=== PATIENT | female | born 1970 | race Caucasian/White ===

== ENCOUNTER 2017-11-14 07:40 | Observation (INO) | payer OTHER ==
[~2017-11-14] VITALS: Ht 162.6 cm; Wt 86.2 kg
[~2017-11-14 07:40] MED LIST: ALBUTEROL2.5 MG/3 M INH/SOL; ALPRAZOLAM1 M2 PO; GUAIFENESIN ER600 MG PO; MELATONIN1 M2 PO; METHYLPREDNISOL PO; MONTELUKAST SOD10 M1 PO; PREDNISONE10 M2 PO; PROAIR HFA8.5 GM INH; SYMBICORT 16010.2 GM INH
--- NOTE | 2017-11-14 08:06 | ED DYSPNEA/ASTHMA COMPLAINT ---
History of Present Illness General Chief Complaint: Upper Respiratory Sx/Fever Stated Complaint: COUGH AND CONGESTION Source: patient Exam Limitations: no limitations Vital Signs & Intake/Output Vital Signs & Intake/Output Vital Signs Date Time Temp Pulse Resp B/P B/P Pulse O2 O2 Flow FiO2 Mean Ox Delivery Rate 11/14 1209 98 11/14 0950 98.1 86 20 120/72 98 Room Air 11/14 0922 98 11/14 0828 95 Room Air 11/14 0822 98 11/14 0743 97.5 96 20 122/87 98 Room Air Allergies Coded Allergies: No Known Allergies (11/25/16) Reconcile Medications Albuterol Sulfate 2.5 MG/3 ML (0.083 %) VIAL.NEB 1 Vial INH/ADAN Q4-6H RESP. ( Reported) Albuterol Sulfate (Proair Hfa) 90 MCG HFA.AER.AD 2 PUF INH Q4-6 PRN PRN SHORTNESS OF BREATH (Reported) Alprazolam 1 MG TABLET 1 TAB PO BIDP PRN ANXIETY (Reported) Fluticasone/Vilanterol (Breo Ellipta 200-25 Mcg INH) 200 MCG-25 MCG/DOSE BLST.W.DEV 1 PUFF PO DAILY BREATHING PROBLEMS (Reported) Melatonin 1 MG TABLET 2 TAB PO QHS SLEEP (Reported) Montelukast Sodium 10 MG TABLET 1 TAB PO QHS RESP. (Reported) Prednisone 10 MG TABLET 1 TAB PO DAILY asthma Take 4 tablets 10/9 and 10/10 Take 3 tabs 10/11 and 10/12 Take 2 tabs 10/13 and 10/14 Take 1 tab 10/15 and 10/16. Sertraline HCl 50 MG TABLET 1 TAB PO QPM MENTAL HEALTH (Reported) Triage Note: PT TO ED C/O ASTHMA EXACERBATION. STATES SHE HAS BEEN ON STEROIDS SINCE . STATES WHEN THIS HAPPENS SHE GETS ADMITTED FOR "IV STEROIDS AND AROUND THE CLOCK DR JAVIER CHRISTIANSON KNOWS ME". Triage Nurses Notes Reviewed? yes Onset: Gradual Duration: week(s):, changing over time, continues in ED, getting worse, waxing and waning Severity: moderate, severe HPI: Patient presents for evaluation of a cough chest congestion and worsening asthma symptoms over the past month. Patient states that she's been taking nebulizers and steroids and antibiotics without improvement. She states she "can't breathe ". She has had a loose sounding cough along with her chest congestion. She used a nebulizer in the middle of the night and she used her Spiriva this morning. She does tend to suffer sinus issues from time to time and feels a little sinus congestion currently but otherwise denies cold symptoms. She is a nonsmoker having quit about 1 year ago. She feels she needs to be hospitalized because "every time she gets this way" her sales systems engineer "puts her in the hospital". Past History Travel History Traveled to [place] past 21 day No Medical History Any Pertinent Medical History? see below for history Neurological: NONE EENT: NONE Cardiovascular: NONE Respiratory: asthma, bronchitis Gastrointestinal: NONE Hepatic: NONE Renal: NONE Musculoskeletal: NONE Psychiatric: anxiety Endocrine: NONE Blood Disorders: NONE Cancer(s): NONE SENIOR ELECTRONICS ENGINEER/Reproductive: NONE History of MRSA: No History of VRE: No History of CDIFF: No Surgical History Surgical History: tubal ligation Psychosocial History Who do you live with Spouse What is your primary language Ethiopian Tobacco Use: Quit >30 days ago ETOH Use: denies use Illicit Drug Use: denies illicit drug use Family History Hx Contributory? No Review of Systems Review of Systems Constitutional: Reports: no symptoms. EENTM: Reports: no symptoms. Respiratory: Reports: see HPI. Cardiovascular: Reports: no symptoms. GI: Reports: no symptoms. Genitourinary: Reports: no symptoms. Musculoskeletal: Reports: no symptoms. Skin: Reports: no symptoms. Neurological/Psychological: Reports: no symptoms. Hematologic/Endocrine: Reports: no symptoms. Immunologic/Allergic: Reports: no symptoms. All Other Systems: Reviewed and Negative Physical Exam Physical Exam Respiratory: SEE BELOW Comments: Gen.: Well-nourished, well-developed, no acute respiratory distress. Conversant in full sentences. Head: Normocephalic, atraumatic. Eyes: Normal inspection bilaterally Ears: Normal inspection bilaterally Nose: Normal inspection Throat/mouth : Moist mucosa Neck: Supple, full range of motion, no goiter Heart: Regular rate and rhythm, no murmurs rubs or gallops Lungs: Diffuse wheezing and rhonchi with somewhat diminished air entry Chest: Nontender Back: Normal range of motion Abdomen: Soft, nontender, nondistended, normal bowel sounds Extremities: Normal range of motion grossly, equal radial pulses, no cyanosis clubbing or edema Neurologic: Cranial nerves grossly intact, speech is clear Skin: warm and dry Psychiatric: Calm, cooperative, no apparent delusions or hallucinations Core Measures ACS in differential dx? No CVA/TIA Diagnosis No Sepsis Present: No Sepsis Focused Exam Completed? No Progress Differential Diagnosis: asthma, bronchitis, CHF, COPD, pneumonia, pneumothorax Plan of Care: Orders Procedure Date/time Status Heart Healthy Diet 11/[address] in observation 11/14 121 Active Misc Message 11/14 121 Active ED Holding Orders 11/14 121 Active Vital Signs 11/14 121 Active Code Status 11/14 1210 Active COMPREHENSIVE METABOLIC PANEL 11/14 1002 Complete CBC WITHOUT DIFFERENTIAL 11/14 1002 Complete ARTERIAL BLOOD GAS (GEN) 11/14 09 Complete Laboratory Tests 11/14/17 1054: Anion Gap 9, Estimated GFR > 60, BUN/Creatinine Ratio 21.7, Glucose 125 H, Calcium 8.8, Total Bilirubin 0.3, AST 20, ALT 34, Alkaline Phosphatase 51, Total Protein 6.8, Albumin 4.0, Globulin 2.8, Albumin/Globulin Ratio 1.4, CBC w Diff NO MAN DIFF REQ, RBC 3.84 L, MCV 91.3, MCH 31.2 H, MCHC 34.2, RDW 14.5, MPV 7.2 L, Gran % 70.0, Lymphocytes % 24.8, Monocytes % 3.9, Eosinophils % 1.1, Basophils % 0.2, Absolute Granulocytes 5.8, Absolute Lymphocytes 2.1, Absolute Monocytes 0.3, Absolute Eosinophils 0.1, Absolute Basophils 0 11/14/17 0915: pH 7.52 H, pCO2 27 L, pO2 111 H, HCO3 21, ABG O2 Sat (Measured) 99.0, Carboxyhemoglobin 0.5 L, O2 Concentration % RA, O2 Delivery Method RA, Phlebotomy Draw Site RIGHT RADIAL CXR Impression: PATIENT: OMAIRA GUILLORY PRESENT AGE : 47 PATIENT ACCOUNT NO: [id number] : 71 LOCATION: [facility] ORDERING PHYSICIAN: Thang Flores MD SERVICE DATE: 11/14/17 EXAM TYPE: RAD - XRY-CHEST XRAY, TWO VIEWS EXAMINATION: CHEST 2 VIEWS CLINICAL INFORMATION: Congestive cough. COMPARISON: PA and lateral chest x-ray of 11/25/2016. TECHNIQUE: PA and lateral radiographs of the chest were obtained. FINDINGS: The cardiomediastinal contours are normal in appearance. There is no evidence of a pneumothorax, vascular congestive changes, focal consolidation, infiltrates, or pleural effusion. The bony thorax is unremarkable. There has been no significant interval change. IMPRESSION: No pneumonia or other active cardiopulmonary process identified. DICTATED BY: Marck Cooper MD DATE/TIME DICTATED:11/14/17829 MECHANIC MARINE ENGINE:[email or web address] DATE/TIME TRANSCRIBED:11/14/17829 CONFIDENTIAL, DO NOT COPY WITHOUT APPROPRIATE AUTHORIZATION. <Electronically signed in Other Vendor System> SIGNED BY: Marck Cooper MD 11/14/17836 Initial ED EKG: none Comments: 11/14/2017 9:00:45 AM PATIENT'S CASE DISCUSSED WITH DR. SANDERSON. SEEN IN WITH ZPACK AND PREDNISONE. NOT SEEN SINCE. 11/14/2017 9:30:40 AM ABG reveals respiratory alkalosis consistent with hyperventilation. I have updated Omaira on this test results. Of note she states that she has been seen in Dr. Sanderson's office as recently as May, typically seeing his nurse practitioner. 11/14/2017 11:19:31 AM Omaira has improved with a second nebulizer treatment. She is resting comfortably and has declined a third. Awaiting blood work. 11/14/2017 11:53:11 AM I noticed Omaira coughing again and asked if she felt an albuterol treatment would be beneficial, she agreed. Departure Departure Disposition: STILL A PATIENT Condition: Stable Clinical Impression Primary Impression: Acute asthma exacerbation Qualifiers: Asthma severity: moderate Asthma persistence: persistent Qualified Code: J45.41 - Moderate persistent asthma with (acute) exacerbation Referrals: Boni Suero MD (PCP/Family) Departure Forms: Customer Survey General Discharge Information Observation Note Spoke With: Manoj Vivreos MD Patient In: Non-ED OBS Care Area Rationale for Observation: My rational for observation is as follows patient has persistent clinical bronchospasm and shortness of breath despite 2 nebulizer treatments and IV Solu- Medrol. She has been taking prednisone, nebulizers and inhalers at home. She has therefore failed outpatient management of her asthma and requires hospitalization. While in the hospital a patient should be treated with inhaled bronchodilators, IV steroids and clinical reevaluation. Pulmonary consultation should be considered given the persistence of the patient's symptoms. Her medication should be reviewed and are medical management optimized. Critical Care Note Critical Care Note Critical Care Time: 30-74 min
--- NOTE | 2017-11-14 08:37 | RADIOLOGY REPORT ---
EXAMINATION: CHEST 2 VIEWS CLINICAL INFORMATION: Congestive cough. COMPARISON: PA and lateral chest x-ray of 11/25/2016. TECHNIQUE: PA and lateral radiographs of the chest were obtained. FINDINGS: The cardiomediastinal contours are normal in appearance. There is no evidence of a pneumothorax, vascular congestive changes, focal consolidation, infiltrates, or pleural effusion. The bony thorax is unremarkable. There has been no significant interval change. IMPRESSION: No pneumonia or other active cardiopulmonary process identified.
[2017-11-14] MEDS ORDERED: SERTRALINE HCL50 MG PO (08:44)
[2017-11-14] MEDS ORDERED: BREO ELLIPTA 21 EACH PO (08:45)
[2017-11-14] MEDS ORDERED: PROAIR HFA8.5 GM INH (08:45)
[2017-11-14 11:02] LABS: ABSOLUTE BASOPHIL COUNT 0 /CUMM (0.0-0.2); ABSOLUTE EOSINOPHIL COUNT 0.1 /CUMM (0.0-0.7); ABSOLUTE GRANULOCYTE CT 5.8 /CUMM (1.4-6.5); ABSOLUTE LYMPH COUNT 2.1 /CUMM (1.2-3.4); ABSOLUTE MONOCYTE COUNT 0.3 /CUMM (0.10-0.60); BASOPHIL % 0.2 % (0.0-2.0); EOSINOPHIL % 1.1 % (0-5); MEAN CORPUSCULAR HGB 31.2 PG (27.0-31.0); MEAN CORPUSCULAR HGB CONC 34.2 G/DL (33.0-37.0); MEAN CORPUSCULAR VOLUME 91.3 FL (81.0-99.0); MEAN PLATELET VOLUME 7.2 FL (7.4-10.4); PLATELET COUNT 292 /CUMM (130-400); RBC DISTRIBUTION WIDTH 14.5 % (11.5-14.5); RED BLOOD CELL CT 3.84 /CUMM (4.20-5.40); WHITE BLOOD CELL COUNT 8.3 /CUMM (4.8-10.8)
--- NOTE | 2017-11-14 12:25 | History & Physical ---
Patrick REAVES,[facility] 11/14/17 1224: General Information and HPI MD Statement: I have seen and personally examined JUAN GUILLORY and documented this H&P. The patient is a 47 year old F who presented with a patient stated chief complaint of cough/congestion. Source of Information: patient Exam Limitations: no limitations History of Present Illness: 47-year-old lady with a past medical history significant for asthma, former smoker who quit 1 year ago anxiety presents to [facility] ED with complaints of one month history of progressively worsening cough and chest congestion, but no chest pain. Today, she denies any fever, chills, recent URI, sick contacts,chest pain, palpitation. Pt states that normally, an acute bronchitis episode is what triggers her asthma attack. She states that she just finished a 5 day course of Z-herrera on 11/08. She reports lately she has been increasingly using her nebulizer in the middle of the night, and is currently taking oral steroids given by her stone spreader operator which she believes has not been effective. Last hospitalization for asthma exacerbation was in November last year, denies any history of intubation. Denies any new exposure to chemical irritants, but has pets at home (cat). 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 Patient is seen by Dr. Fletcher who is her stone spreader operator. She regularly use of her Peak flow, but she remembers the last measurement was around 260 about 2 weeks ago. Allergies/Medications Allergies: Coded Allergies: No Known Allergies (11/25/16) Home Med list Albuterol Sulfate 2.5 MG/3 ML (0.083 %) VIAL.NEB 1 Vial INH/ADAN Q4-6H RESP. ( Reported) Albuterol Sulfate (Proair Hfa) 90 MCG HFA.AER.AD 2 PUF INH Q4-6 PRN PRN SHORTNESS OF BREATH (Reported) Alprazolam 1 MG TABLET 1 TAB PO BIDP PRN ANXIETY (Reported) Fluticasone/Vilanterol (Breo Ellipta 200-25 Mcg INH) 200 MCG-25 MCG/DOSE BLST.W.DEV 1 PUFF PO DAILY BREATHING PROBLEMS (Reported) Melatonin 1 MG TABLET 2 TAB PO QHS SLEEP (Reported) Montelukast Sodium 10 MG TABLET 1 TAB PO QHS RESP. (Reported) Prednisone 10 MG TABLET 1 TAB PO DAILY asthma Take 4 tablets 11/29 and 11/30 Take 3 tabs 12/01 and 12/02 Take 2 tabs 12/03 and 12/04 Take 1 tab 12/05 and 12/06. Sertraline HCl 50 MG TABLET 1 TAB PO QPM MENTAL HEALTH (Reported) Past History Travel History Traveled to [place] past 21 day No Medical History Neurological: NONE EENT: NONE Cardiovascular: NONE Respiratory: asthma, bronchitis Gastrointestinal: NONE Hepatic: NONE Renal: NONE Musculoskeletal: NONE Psychiatric: anxiety Endocrine: NONE Blood Disorders: NONE Cancer(s): NONE STONE REPAIRER/Reproductive: NONE History of MRSA: No History of VRE: No History of CDIFF: No Surgical History Surgical History: tubal ligation Past Family/Social History Psychosocial History ETOH Use: denies use Illicit Drug Use: denies illicit drug use Review of Systems Review of Systems Constitutional: Reports: see HPI. EENTM: Reports: no symptoms. Cardiovascular: Reports: no symptoms. Respiratory: Reports: cough, wheezing. GI: Reports: no symptoms. Genitourinary: Reports: no symptoms. Musculoskeletal: Reports: no symptoms. Skin: Reports: no symptoms. Neurological/Psychological: Reports: no symptoms. Hematologic/Endocrine: Reports: no symptoms. Immunologic/Allergic: Reports: no symptoms. All Other Systems: Reviewed and Negative Exam & Diagnostic Data Last 24 Hrs of Vital Signs/I&O Vital Signs Date Time Temp Pulse Resp B/P B/P Pulse O2 O2 Flow FiO2 Mean Ox Delivery Rate 11/14 1209 98 11/14 0950 98.1 86 20 120/72 98 Room Air 11/14 0922 98 11/14 0828 95 Room Air 11/14 0822 98 11/14 0743 97.5 96 20 122/87 98 Room Air Intake & Output 11/14 1600 11/14 0800 11/14 0000 Intake Total 0 Output Total Balance 0 Intake, Oral 0 Patient 86.183 kg Weight Weight Estimated Measurement Method Physical Exam General Appearance Alert, Oriented X3, Cooperative, No Acute Distress, able to speak in full sentences, no accessory muscles recruited Skin No Significant Lesion Skin Temp/Moisture Exam: Warm/Dry Sepsis Skin Exam (color): Normal for Ethnicity HEENT Atraumatic, Mucous Membr. moist/pink Neck Supple, No JVD Lymphatic Cervical nl Cardiovascular Regular Rate, Normal S1, Normal S2 Lungs prolonged exp wheezes b/l more prominent in the upper hook Abdomen Normal Bowel Sounds, Soft, No Tenderness Neurological Normal Gait, Normal Speech, Strength at 5/5 X4 Ext, Normal Tone, Sensation Intact Extremities No Clubbing, No Cyanosis, No Edema Last 24 Hrs of Labs/Gerard: Laboratory Tests 11/14/17 1054: Anion Gap 9, Estimated GFR > 60, BUN/Creatinine Ratio 21.7, Glucose 125 H, Calcium 8.8, Total Bilirubin 0.3, AST 20, ALT 34, Alkaline Phosphatase 51, Total Protein 6.8, Albumin 4.0, Globulin 2.8, Albumin/Globulin Ratio 1.4, CBC w Diff NO MAN DIFF REQ, RBC 3.84 L, MCV 91.3, MCH 31.2 H, MCHC 34.2, RDW 14.5, MPV 7.2 L, Gran % 70.0, Lymphocytes % 24.8, Monocytes % 3.9, Eosinophils % 1.1, Basophils % 0.2, Absolute Granulocytes 5.8, Absolute Lymphocytes 2.1, Absolute Monocytes 0.3, Absolute Eosinophils 0.1, Absolute Basophils 0 11/14/17 0915: pH 7.52 H, pCO2 27 L, pO2 111 H, HCO3 21, ABG O2 Sat (Measured) 99.0, Carboxyhemoglobin 0.5 L, O2 Concentration % RA, O2 Delivery Method RA, Phlebotomy Draw Site RIGHT RADIAL Microbiology 11/14 1240 URINE ROUT: Legionella Antigen - ORD 11/14 124 URINE ROUT: Streptococcus pneumoniae Antigen (M - ORD 11/14 1241 LOWER RESP: Respiratory Culture - ORD 11/14 124 LOWER RESP: Gram Stain - ORD Diagnostic Data EKG Results SERVICE DATE: 11/14/17 EXAM TYPE: RAD - XRY-CHEST XRAY, TWO VIEWS EXAMINATION: CHEST 2 VIEWS CLINICAL INFORMATION: Congestive cough. COMPARISON: PA and lateral chest x-ray of 11/25/2016. TECHNIQUE: PA and lateral radiographs of the chest were obtained. FINDINGS: The cardiomediastinal contours are normal in appearance. There is no evidence of a pneumothorax, vascular congestive changes, focal consolidation, infiltrates, or pleural effusion. The bony thorax is unremarkable. There has been no significant interval change. IMPRESSION: No pneumonia or other active cardiopulmonary process identified. DICTATED BY: Marck Cooper MD DATE/TIME DICTATED:11/14/17829 Assessment/Plan Assessment: 47-year-old lady with past medical history significant for asthma, former smoker (>30pack year) quit 1 year ago, anxiety, presents with upper respiratory symptoms and physical exam positive for b/l wheezes which is consistent with an asthma exacerbation that has been refractory to outpatient oral steroids. Afebrile on presentation with no leukocytosis and chest x-ray unremarkable for any acute pathology. Impression Asthma exacerbation. Possible triggered by allergens vs bronchitis. History of anxiety. Plan Admit to general medicine O2 supplementation to keep sats above 90% Scheduled TRC nebs while awake s/p solumedrol 120mg, continue 40 mg q8h starting tomorrow Continue Singulair Peak flow measurement now and after every neb session f/u sputum cultures,legionalla and strept Watch off Abx, since she finsished a zpak course five days ago. Will notify her stone spreader operator (Dr Borrero) Consider Pneumovax before discharge, if not already given Ativan as needed for anxiety. Contine setrlaine 50 mg daily CODE STATUS; full DVT prophylaxis; enoxaparin As Ranked By This Provider Problem List: 1. Acute asthma exacerbation Qualifiers Asthma severity: moderate Asthma persistence: persistent Qualified Code: J45.41 - Moderate persistent asthma with (acute) exacerbation Core Measures/Misc (11/07) Acute Coronary Syndrome ACS Diagnosis: No Congestive Heart Failure Congestive Heart Failure Diagnosis No Cerebrovascular Accident CVA/TIA Diagnosis: No VTE (View Protocol) VTE Risk Factors Acute Medical Illness No Mechanical VTE Prophylaxis d/t N/A MechProphylax Ordered No VTE Pharm Prophylaxis d/t NA PharmProphylax ordered Sepsis (View protocol) Sepsis Present: No If YES complete Sepsis Event Note If YES complete Sepsis Event Note NancyFrederick 11/14/17 1445: Core Measures/Misc (11/07) Sepsis (View protocol) If YES complete Sepsis Event Note If YES complete Sepsis Event Note Attending MD Review Statement Attending Statement Attending MD Statement: examined this patient, discuss w/resident/PA/IMMIGRATION SPECIALIST, agreed w/resident/PA/IMMIGRATION SPECIALIST, discussed with family, reviewed EMR data (avail), discussed with nursing, discussed with case mgmt, reviewed images, amended to note Attending Assessment/Plan: Agree with above. Admit for asthma exacerbation. Notify pulmonary.
[2017-11-14 16:17] VITALS: BP 136/84
[2017-11-14 21:30] VITALS: BP 128/78
[2017-11-14 22:47] VITALS: BP 136/80
[2017-11-15 06:42] VITALS: BP 136/78
--- NOTE | 2017-11-15 06:56 | PN- Housestaff ---
Tere Shearer 11/15/17 0656: Subjective Follow-up For: asthma exacerbation Complaints: no complaints Tele-Events Since Last Visit: Seen and examined sitting comfortably in bed this morning. She reports that she is feeling much better than before. Reports her breathing feeling much better as well. No other complaints no acute events overnight. Review of Systems Constitutional: Reports: see HPI. Objective Last 24 Hrs of Vital Signs/I&O Vital Signs Date Time Temp Pulse Resp B/P B/P Pulse O2 O2 Flow FiO2 Mean Ox Delivery Rate 11/15 1619 98 Room Air 11/15 1600 98.6 74 20 120/64 88 11/15 0814 95 Room Air 11/15 0800 Room Air 11/15 0642 98.0 100 24 136/78 98 11/15 0000 Room Air 11/14 2247 98.2 110 22 136/80 100 Nasal 2.0L Cannula 11/14 2130 98.7 100 20 128/78 96 Intake & Output 11/15 1600 11/15 0800 11/15 0000 Intake Total 800 120 600 Output Total Balance 800 120 600 Intake, Oral 800 120 600 Physical Exam General Appearance: Alert, Oriented X3, Cooperative, No Acute Distress Skin: No Rashes, No Breakdown, No Significant Lesion Skin Temp/Moisture Exam: Cool/Dry Sepsis Skin Exam (color): Normal for Ethnicity HEENT: Atraumatic, Mucous Membr. moist/pink Neck: Supple, No JVD, No thryomegaly, No LAD Cardiovascular: Regular Rate, Normal S1, Normal S2, No Murmurs Lungs: Normal Air Movement, mild wheeze b/l Abdomen: Normal Bowel Sounds, Soft, No Tenderness, No Hepatospenomegaly, No Masses Neurological: Normal Speech, Strength at 5/5 X4 Ext, Normal Tone, Sensation Intact, Cranial Nerves 3-12 NL Extremities: No Clubbing, No Cyanosis, No Edema, Normal Pulses, No Tenderness/ Swelling Current Medications: Current Medications Sig/Nguyễn Start time Last Medication Dose Route Stop Time Status Admin Albuterol Sulfate 3 ML EVERY 4 HRS/AWAKE 11/15 1999 AC 11/15 INH 1611 Alprazolam 0.5 MG TID PRN 11/15 0815 AC 11/15 PO 11/22 0859 1316 Alprazolam 1 MG BID PRN 11/14 1345 DC 11/15 PO 11/21 1344 0532 Budesonide/ 2 PUF BID 11/14 2100 AC 11/15 Formoterol Fumarate INH 0805 Cyclobenzaprine HCl 10 MG 0600,1800 11/15 1800 AC PO Cyclobenzaprine HCl 10 MG BID 11/14 1700 DC 11/15 PO 0805 Enoxaparin Sodium 40 MG DAILY 11/15 0900 AC SC Guaifenesin 600 MG Q12 11/14 2100 AC 11/15 PO 08 Ipratropium Grace 2.5 ML EVERY 4 HRS/AWAKE 11/14 2000 AC 11/15 INH 1611 Lorazepam 0 .STK-MED ONE 11/14 2300 DC .ROUTE Lorazepam 0.5 MG ONCE ONE 11/14 2300 DC 11/14 IV 11/14 Melatonin 3 MG AT BEDTIME 11/14 2099 DC 11/14 PO 2018 Melatonin 5 MG AT BEDTIME 11/14 2100 AC PO Methylprednisolone 40 MG Q8 11/15 0600 AC 11/15 IV 1357 Montelukast Sodium 10 MG AT BEDTIME 11/14 2100 AC 11/14 PO 2016 Sertraline HCl 50 MG 1800 11/15 1800 AC PO Sertraline HCl 50 MG QPM 11/14 2100 DC 11/14 PO 1747 Tramadol HCl 0 .STK-MED ONE 11/15 0047 DC PO Tramadol HCl 50 MG ONCE ONE 11/15 0045 DC 11/15 PO 11/15 0046 0044 Last 24 Hrs of Lab/Gerard Results Last 24 Hrs of Labs/Mics: Laboratory Tests 11/15/17 0628: Anion Gap 11, CBC w Diff NO MAN DIFF REQ, RBC 3.70 L, MCV 92.8, MCH 31.5 H, MCHC 34.0, RDW 15.4 H, MPV 7.6, Gran % 80.6 H, Lymphocytes % 12.9 L, Monocytes % 6.3, Eosinophils % 0, Basophils % 0.2, Absolute Granulocytes 14.3 H , Absolute Lymphocytes 2.3, Absolute Monocytes 1.1 H, Absolute Eosinophils 0, Absolute Basophils 0 Assessment/Plan Assessment: 47-year-old female with a past medical history significant for asthma, former smoker (quit 1 year ago anxiety) presented to [facility] ED with complaints of progressively worsening cough and chest congestion 1 month. She finished a 5 day course of Z-Walt on November 08. Denies any fever, chills, recent URI, sick contacts,chest pain, palpitations. She reports using her nebulizer more frequently lately and is currently taking p.o. prednisone by her continuous pickling line pickler. She measures her peak flow regularly, and she remembers was 260 from 2 weeks ago Her last hospitalization for asthma exacerbation was in November 2016, she denies history of intubation due to asthma. Chest x-ray:No pneumonia or other active cardiopulmonary process identified. Problems: 1.asthma exacerbation 2.anxiety Plan: Problem List: 1. Acute asthma exacerbation Pain Ratin Pain Location: none Pain Goal: Remain pain free Pain Plan: pain pathway Tomorrow's Labs & Rationales: not required NancyFrederick 11/15/17 1126: Attending MD Review Statement Attending Statement Attending MD Statement: examined this patient, discuss w/resident/PA/SALES DEVELOPMENT SPECIALIST, agreed w/resident/PA/SALES DEVELOPMENT SPECIALIST, discussed with family, reviewed EMR data (avail), discussed with nursing, discussed with case mgmt, reviewed images, amended to note Attending Assessment/Plan: Patient here in observation for asthma exacerbation and improvement with iv steroids. She has diffuse b/l wheezing appears to be improved. She had neck pain which is better now with muscle relaxants. Pulmonary appreciated. Continue current care. Anticipate discharge in next 24-48 hrs.
[2017-11-15 08:21] LABS: ABSOLUTE BASOPHIL COUNT 0 /CUMM (0.0-0.2); ABSOLUTE EOSINOPHIL COUNT 0 /CUMM (0.0-0.7); ABSOLUTE GRANULOCYTE CT 14.3 /CUMM (1.4-6.5); BASOPHIL % 0.2 % (0.0-2.0); EOSINOPHIL % 0 % (0-5)
[2017-11-15 08:42] LABS: ABSOLUTE LYMPH COUNT 2.3 /CUMM (1.2-3.4); ABSOLUTE MONOCYTE COUNT 1.1 /CUMM (0.10-0.60); GRANULOCYTE % 80.6 % (42.2-75.2); HEMATOCRIT 34.3 % (37-47); MEAN CORPUSCULAR HGB 31.5 PG (27.0-31.0); MEAN CORPUSCULAR VOLUME 92.8 FL (81.0-99.0); MEAN PLATELET VOLUME 7.6 FL (7.4-10.4); PLATELET COUNT 305 /CUMM (130-400); RBC DISTRIBUTION WIDTH 15.4 % (11.5-14.5)
[2017-11-15 08:47] LABS: WHITE BLOOD CELL COUNT 17.7 /CUMM (4.8-10.8)
--- NOTE | 2017-11-15 08:51 | Cons- Pulmonary ---
General Information and HPI Consulting Request Date of Consult: 11/15/17 Requested By: Dr. Cruz Reason for Consult: Asthma management Source of Information: patient, old records Exam Limitations: no limitations History of Present Illness: The patient is a 47-year-old female with a past medical history significant for long-term tobacco use (quit in 2017), and obstructive lung disease. The patient presented to the ED with complaints of progressively worsening cough, chest congestion and shortness of breath. There is no report of chest pain, fever or chills. The patient was treated with a Z-Walt, oral steroids and nebulizer treatments without relief. Further evaluation revealed the patient to be in acute bronchospasm with evidence of an asthma exacerbation. Chest x-ray showed no pneumonia or other active cardiopulmonary process. The patient is currently on IV Solu-Medrol 40 mg every 8 hours, Singulair, nebs/TRC, and supplemental oxygen as needed. She is also receiving guaifenesin for cough. There has been no source of infection identified. She is feeling much improved since admission. Allergies/Medications Allergies: Coded Allergies: No Known Allergies (11/25/16) Home Med List: Albuterol Sulfate 2.5 MG/3 ML (0.083 %) VIAL.NEB 1 Vial INH/ADAN Q4-6H RESP. ( Reported) Albuterol Sulfate (Proair Hfa) 90 MCG HFA.AER.AD 2 PUF INH Q4-6 PRN PRN SHORTNESS OF BREATH (Reported) Alprazolam 1 MG TABLET 1 TAB PO BIDP PRN ANXIETY (Reported) Fluticasone/Vilanterol (Breo Ellipta 200-25 Mcg INH) 200 MCG-25 MCG/DOSE BLST.W.DEV 1 PUFF PO DAILY BREATHING PROBLEMS (Reported) Melatonin 1 MG TABLET 2 TAB PO QHS SLEEP (Reported) Montelukast Sodium 10 MG TABLET 1 TAB PO QHS RESP. (Reported) Prednisone 10 MG TABLET 1 TAB PO DAILY asthma Take 4 tablets 11/29 and 11/30 Take 3 tabs 12/01 and 12/02 Take 2 tabs 13 and 12/04 Take 1 tab 15 and 16. 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 Surgical History Surgical History: tubal ligation Psychosocial History Smoking Status: Former Smoker ETOH Use: denies use Illicit Drug Use: denies illicit drug use Exam & Diagnostic Data Last 24 Hrs of Vital Signs/I&O Vital Signs Date Time Temp Pulse Resp B/P B/P Pulse O2 O2 Flow FiO2 Mean Ox Delivery Rate 11/15 0814 95 Room Air 11/15 0642 98.0 100 24 136/78 98 11/15 0000 Room Air 11/14 2247 98.2 110 22 136/80 100 Nasal 2.0L Cannula 11/14 2130 98.7 100 20 128/78 96 11/14 1651 Room Air 11/14 1617 98.9 92 20 136/84 95 11/14 1436 98 11/14 1248 98.0 82 19 128/70 99 Room Air 11/14 1209 98 11/14 0950 98.1 86 20 120/72 98 Room Air 11/14 0922 98 Intake & Output 11/15 1600 11/15 0800 11/15 0000 Intake Total 120 600 Output Total Balance 120 600 Intake, Oral 120 600 Physical Exam General Appearance: no apparent distress, alert, awake, comfortable Head: atraumatic Eyes: Bilateral: PERRL. Neck: supple Respiratory: wheezing Cardiovascular: regular rate/rhythm Gastrointestinal: normal bowel sounds, soft, non-tender Extremities: no edema Last 48 Hrs of Labs/Gerard: Laboratory Tests 11/15/17 0628: Sodium Pending, Potassium Pending, Chloride Pending, Carbon Dioxide Pending, Anion Gap Pending, CBC w Diff Pending, WBC Pending, RBC Pending, Hgb Pending, Hct Pending, MCV Pending, MCH Pending, MCHC Pending, RDW Pending, Plt Count Pending, MPV Pending 11/14/17 1054: Anion Gap 9, Estimated GFR > 60, BUN/Creatinine Ratio 21.7, Glucose 125 H, Calcium 8.8, Phosphorus 3.4, Total Bilirubin 0.3, AST 20, ALT 34, Alkaline Phosphatase 51, Total Protein 6.8, Albumin 4.0, Globulin 2.8, Albumin/Globulin Ratio 1.4, CBC w Diff NO MAN DIFF REQ, RBC 3.84 L, MCV 91.3, MCH 31.2 H, MCHC 34.2, RDW 14.5, MPV 7.2 L, Gran % 70.0, Lymphocytes % 24.8, Monocytes % 3.9, Eosinophils % 1.1, Basophils % 0.2, Absolute Granulocytes 5.8, Absolute Lymphocytes 2.1, Absolute Monocytes 0.3, Absolute Eosinophils 0.1, Absolute Basophils 0 11/14/1715: pH 7.52 H, pCO2 27 L, pO2 111 H, HCO3 21, ABG O2 Sat (Measured) 99.0, Carboxyhemoglobin 0.5 L, O2 Concentration % RA, O2 Delivery Method RA, Phlebotomy Draw Site RIGHT RADIAL Diagnostic Data EKG Results No acute cardiopulmonary process. Assessment/Plan Impression/Plan: 1. Asthma exacerbation - with significant improvement with current therapy. 2. Previous history of smoking. Recommendations: * Continue IV Solu-Medrol 40 mg every 8 hours. * Continue Singulair 10 mg daily. * Guaifenesin to continue. * Nebs/total respiratory care to continue. * Continue Symbicort. * O2 for saturations greater than 92%. * Monitor off antibiotics. * Continue all supportive care. * Thank you for the consult. Will follow along with you and make further recommendations as necessary. Consult Acknowledgment - Thank you for your consult request.
[2017-11-15 16:00] VITALS: BP 120/64
[2017-11-15 22:55] VITALS: BP 142/74
[2017-11-16 06:30] VITALS: BP 108/70
--- NOTE | 2017-11-16 06:46 | PN-Observation ---
Tere Shearer 11/16/17 0646: Observation Note Observation Note _ I have personally examined JUAN GUILLORY. Patient is in observation status for asthma exacerbation. Assessment/Plan Medical Assessment: 47-year-old female with a past medical history significant for asthma, former smoker (quit 1 year ago anxiety) presented to [place] ED with complaints of progressively worsening cough and chest congestion 1 month. She finished a 5 day course of Z-Walt on November 08. Denies any fever, chills, recent URI, sick contacts,chest pain, palpitations. 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 She measures her peak flow regularly, and she remembers was 260 from 2 weeks ago Her last hospitalization for asthma exacerbation was in November 2016, she denies history of intubation due to asthma. Chest x-ray:No pneumonia or other active cardiopulmonary process identified. Problems: 1.asthma exacerbationresolved 2.anxiety Plan: markedly improved after the IV steroids, TRC/nebs prednisone daily. Tuesday. Problem List: 1. Acute asthma exacerbation Qualifiers Asthma severity: moderate Asthma persistence: persistent Qualified Code: J45.41 - Moderate persistent asthma with (acute) exacerbation Subjective Follow-up For: Asthma exacerbation Complaints: no complaints Subjective: Patient seen and examined lying comfortably in bed this morning. She is eager to be discharged home. She reports feeling markedly improved. No complaints at this time Review of Systems Constitutional: Reports: no symptoms, see HPI. Objective Last 24 Hrs of Vital Signs/I&O Vital Signs Date Time Temp Pulse Resp B/P B/P Pulse O2 O2 Flow FiO2 Mean Ox Delivery Rate 11/16 0800 Room Air 11/16 0630 98.5 73 20 108/70 97 Room Air 11/16 0550 93 Room Air 11/15 2255 97.9 98 18 142/74 96 Room Air Intake & Output 11/16 1600 11/16 0800 11/16 0000 Intake Total 200 500 Output Total Balance 200 500 Intake, Oral 200 500 Physical Exam General Appearance: Alert, Oriented X3, Cooperative, No Acute Distress Other Physical Findings: Skin: No Breakdown Skin Temp/Moisture Exam: Warm/Dry Sepsis Skin Exam (color): Normal for Ethnicity HEENT: Atraumatic, mucous Membr. moist/pink Neck: Supple Cardiovascular: Regular Rate, Normal S1, Normal S2, No Murmurs Lungs: CTA, mild rhonchi bilaterally: Very much improved from yesterday Abdomen: Normal Bowel Sounds, Soft, No Tenderness, No Hepatospenomegaly Neurological: Normal Speech, normal Tone, Sensation Intact Extremities: No Clubbing, No Cyanosis, No edema,Normal Pulses Vascular: Pulses Symmetrical Current Medications: Current Medications Sig/Nguyễn Start time Last Medication Dose Route Stop Time Status Admin Albuterol Sulfate 3 ML EVERY 4 HRS/AWAKE 11/15 1999 DCD 11/16 INH 0531 Alprazolam 0.5 MG AT BEDTIME 11/15 2099 DCD 11/15 PO 11/22 Alprazolam 0.5 MG TID PRN 11/15 0815 DCD 11/16 PO 11/22 0859 0532 Budesonide/ 2 PUF BID 11/14 2099 DCD 11/16 Formoterol Fumarate INH 0808 Cyclobenzaprine HCl 10 MG 0600,1800 11/15 1800 DCD 11/16 PO 0527 Enoxaparin Sodium 40 MG DAILY 11/15 09 DCD SC Guaifenesin 600 MG Q12 11/14 2099 DCD 11/16 PO 0807 Ipratropium [place] 2.5 ML EVERY 4 HRS/AWAKE 11/15 1999 DCD 11/16 INH 0531 Melatonin 5 MG AT BEDTIME 11/14 2099 DCD 11/15 PO 2000 Methylprednisolone 40 MG Q12 11/16 09 DCD IV Methylprednisolone 40 MG Q8 11/15 0600 DC 11/16 IV 0527 Montelukast Sodium 10 MG AT BEDTIME 11/14 2099 DCD 11/15 PO 2000 Patient Medication 1 ED ONE ONE 11/16 1145 RID Teaching ED 11/16 1146 Sertraline HCl 50 MG 1800 11/15 1800 DCD 11/15 PO 1726 Last 24 Hrs of Labs/Mics: Laboratory Tests 11/16/17 06: CBC w Diff NO MAN DIFF REQ, RBC 3.70 L, MCV 93.3, MCH 31.5 H, MCHC 33.8, RDW 15.3 H, MPV 7.8, Gran % 86.4 H, Lymphocytes % 9.1 L, Monocytes % 4.4, Eosinophils % 0, Basophils % 0.1, Absolute Granulocytes 18.8 H, Absolute Lymphocytes 2.0, Absolute Monocytes 1.0 H, Absolute Eosinophils 0, Absolute Basophils 0 Nancy,Manik 11/16/17 1039: Objective Last 24 Hrs of Vital Signs/I&O Vital Signs Date Time Temp Pulse Resp B/P B/P Pulse O2 O2 Flow FiO2 Mean Ox Delivery Rate 11/16 0630 98.5 73 20 108/70 97 Room Air 11/16 0550 93 Room Air 11/15 2255 97.9 98 18 142/74 96 Room Air 11/15 1619 98 Room Air 11/15 1600 98.6 74 20 120/64 88 Intake & Output 11/16 1600 11/16 0800 11/16 0000 Intake Total 200 500 Output Total Balance 200 500 Intake, Oral 200 500 Attending Addendum Attending Brief Note Patient here for observation for asthma exacerbation with improvement on iv steroids. She has diffuse b/l wheezing which appears to be improved a lot. She had neck pain which is better now with muscle relaxants an can be discharged on PO steroid short course. Pulmonary appreciated and need close follow up with Pulmonary Dr Borrero as outpatient. Patient can be discharged in stable condition today
[2017-11-16 08:03] LABS: ABSOLUTE BASOPHIL COUNT 0 /CUMM (0.0-0.2); ABSOLUTE EOSINOPHIL COUNT 0 /CUMM (0.0-0.7); ABSOLUTE GRANULOCYTE CT 18.8 /CUMM (1.4-6.5); BASOPHIL % 0.1 % (0.0-2.0); EOSINOPHIL % 0 % (0-5); HEMATOCRIT 34.5 % (37-47); MEAN CORPUSCULAR HGB 31.5 PG (27.0-31.0); MEAN CORPUSCULAR HGB CONC 33.8 G/DL (33.0-37.0); MEAN CORPUSCULAR VOLUME 93.3 FL (81.0-99.0); MEAN PLATELET VOLUME 7.8 FL (7.4-10.4); PLATELET COUNT 312 /CUMM (130-400); RBC DISTRIBUTION WIDTH 15.3 % (11.5-14.5); WHITE BLOOD CELL COUNT 21.8 /CUMM (4.8-10.8)
--- NOTE | 2017-11-16 08:45 | Patient Discharge Instructions ---
Discharge Instructions General Discharge Information You were seen/treated for: asthma exacerbation Watch for these problems: If worsening shortness of breath, wheeze, chest pain, fever, chills: please visit your nearest emergency department Special Instructions: -Please visit your primary care physician one week after discharge & inform them about your recent stay at [facility] -Please visit your manager coding one week after discharge & inform them about your recent stay at [facility] Diet Continue normal diet: Yes Activity Activity Self Limited: Yes Acute Coronary Syndrome Inclusion Criteria At DC or during hospital stay patient has or had the following: ACS DIAGNOSIS No Discharge Core Measures Meds if any: Prescribed or Continued at Discharge Meds if any: NOT Prescribed or Continued at Discharge Congestive Heart Failure Inclusion Criteria At DC or during hospital stay patient has or had the following: CHF DIAGNOSIS No Discharge Core Measures Meds if any: Prescribed or Continued at Discharge Meds if any: NOT Prescribed or Continued at Discharge Cerebrovascular accident Inclusion Criteria At DC or during hospital stay patient has or had the following: CVA/TIA Diagnosis No Discharge Core Measures Meds if any: Prescribed or Continued at Discharge Meds if any: NOT Prescribed or Continued at Discharge Venous thromboembolism Inclusion Criteria VTE Diagnosis No VTE Type NONE VTE Confirmed by (Test) NONE Discharge Core Measures - Per Current guidelines, there needs to be overlap - treatment for the first 5 days of Warfarin therapy. - If discharged on Warfarin prior to 5 days of - overlap therapy, the patient will need to be - assessed for post discharge needs including - *Post discharge parental anticoagulation - *Warfarin and/or parental anticoagulation education - *Follow up date to check INR post discharge At least 5 days overlap therapy as Inpatient No Meds if any: Prescribed or Continued at Discharge Note: Overlap Therapy is Warfarin and Anticoagulant Meds if any: NOT Prescribed or Continued at Discharge
[2017-11-16 08:55] LABS: GRANULOCYTE % 86.4 % (42.2-75.2)
[2017-11-16] MEDS ORDERED: PREDNISONE10 M2 PO ×3 (10:12→13:11)
[2017-11-16] MEDS ORDERED: BACLOFEN10 M1 PO ×2 (10:12→13:11)
--- NOTE | 2017-11-16 10:41 | PN- Pulmonary ---
Objective Current Medications: Current Medications Sig/Nguyễn Start time Last Medication Dose Route Stop Time Status Admin Albuterol Sulfate 3 ML EVERY 4 HRS/AWAKE 11/15 1999 AC 11/16 INH 0531 Alprazolam 0.5 MG AT BEDTIME 11/15 2099 AC 11/15 PO 11/22 Alprazolam 0.5 MG TID PRN 11/15 0815 AC 11/16 PO 11/22 0859 0532 Budesonide/ 2 PUF BID 11/14 2099 AC 11/16 Formoterol Fumarate INH 0808 Cyclobenzaprine HCl 10 MG 0600,1800 11/15 1800 AC 11/16 PO 0527 Cyclobenzaprine HCl 10 MG BID 11/14 1700 DC 11/15 PO 0805 Enoxaparin Sodium 40 MG DAILY 11/15 09 AC SC Guaifenesin 600 MG Q12 11/14 2099 AC 11/16 PO 0807 Ipratropium [place] 2.5 ML EVERY 4 HRS/AWAKE 11/15 1999 AC 11/16 INH 0531 Melatonin 5 MG AT BEDTIME 11/14 2099 AC 11/15 PO 2000 Methylprednisolone 40 MG Q12 11/16 09 AC IV Methylprednisolone 40 MG Q8 11/15 06 DC 11/16 IV 0527 Montelukast Sodium 10 MG AT BEDTIME 11/14 2099 AC 11/15 PO 2000 Sertraline HCl 50 MG 1800 11/15 1800 AC 11/15 PO 1726 Vital Signs & I&O Last 24 Hrs of Vitals and I&O: Vital Signs Date Time Temp Pulse Resp B/P B/P Pulse O2 O2 Flow FiO2 Mean Ox Delivery Rate 11/16 06 98.5 73 20 108/70 97 Room Air 11/16 0550 93 Room Air 11/15 2255 97.9 98 18 142/74 96 Room Air 11/15 1619 98 Room Air 11/15 1600 98.6 74 20 120/64 88 Intake & Output 11/16 1600 11/16 0800 11/16 0000 Intake Total 200 500 Output Total Balance 200 500 Intake, Oral 200 500 Physical Exam General Appearance: no apparent distress, alert, awake, comfortable Head: atraumatic Eyes: Bilateral: PERRL. Neck: supple Respiratory: wheezing Cardiovascular: regular rate/rhythm Gastrointestinal: normal bowel sounds, soft, non-tender Extremities: no edema Results Last 24 Hrs of Lab Results: Laboratory Tests 11/16/17 0622: CBC w Diff NO MAN DIFF REQ, RBC 3.70 L, MCV 93.3, MCH 31.5 H, MCHC 33.8, RDW 15.3 H, MPV 7.8, Gran % 86.4 H, Lymphocytes % 9.1 L, Monocytes % 4.4, Eosinophils % 0, Basophils % 0.1, Absolute Granulocytes 18.8 H, Absolute Lymphocytes 2.0, Absolute Monocytes 1.0 H, Absolute Eosinophils 0, Absolute Basophils 0 Impression/Plan Impression/Plan Impression/Plan: 1. Asthma exacerbation - with significant improvement with current therapy. 2. Previous history of smoking. 3. Steroid-induced leukocytosis. No obvious evidence of infection. Recommendations: * Prednisone taper: 60 mg for 3 days, 50 mg for 3 days, 40 mg for 3 days, 30 mg for 3 days, 20 mg for 3 days, 10 mg for 3 days, 5 mg for 3 days then stop. * Continue Singulair 10 mg daily. * Guaifenesin to continue. * Home nebulizer treatments with albuterol every 4 hours as needed. * Resume Brio 200/25 mcg, 1 inhalation every morning. * O2 for saturations greater than 92%. * Monitor off antibiotics. * Please refer to the [facility] center for outpatient follow-up. * Will follow-up as an outpatient in the office.
== END 2017-11-16 11:35 ==
LOC: ERH 07:40 → ERHI 12:11 → 2NA 12:11 → ENRESERV 12:57 → ENTRNSPT 14:02 → EDTRNSPT 15:22 → EDTRNSPTSTS 15:22 → 2NA 15:38 → CMPTRNSPT 15:40 → ENPENDDIS 11-16 10:05 → ENTRNSPT 11-16 10:59 → EDTRNSPTSTS 11-16 11:18 → EDTRNSPT 11-16 11:18 → 2NA 11-16 11:35 → CMPTRNSPT 11-16 11:41
PROVIDERS: Emergency Medicine; Internal Medicine; Student in an Organized Health Care Education/Training Program
DX: J45.901 Unspecified asthma with (acute) exacerbation (principal); Z87.891 Personal history of nicotine dependence; F41.9 Anxiety disorder, unspecified; Z79.52 Long term (current) use of systemic steroids
CPT/HCPCS: 1263; 1395; 36592; 71046; 87070; 87449; 87450; 96374; 96375; 99291; G0378; J1650; J2920; J2930; J3490